=== PATIENT | female | born 1985 | race Caucasian/White ===

== ENCOUNTER 2016-04-10 17:29 | Emergency (ER) | payer MEDICAID ==
[2016-04-10] MEDS ORDERED: CLINDAMYCIN 600 MG/4 ML VIAL ONE (18:36)
== END 2016-04-10 20:06 | disposition home or self-care (01) ==
LOC: ER 17:29
DX: L03.115 Cellulitis of right lower limb (principal); T63.331A Toxic effect of venom of brown recluse spider, accidental (unintentional), initial encounter
CPT/HCPCS: 36415; 80053; 85025; 96372